=== PATIENT | male | born 1950 | race Caucasian/White ===

== ENCOUNTER 2016-04-15 07:00 | Day surgery (SDC) | payer MEDICARE ==
[~2016-04-15] VITALS: Ht 177.8 cm; Wt 92.0 kg
[~2016-04-15 07:00] MED LIST: ALBU2TAB4 PO; ASPI-973 PO; BUPR150T9 PO; GEMF600T3 PO; HYDR-4003 PO; LISI40TA PO; MELO-259 PO; NAPR500T5 PO; OMEP20TA86 PO; RED600CA2 PO
[2016-04-15 07:33] VITALS: BP 136/79; PULSE 66; RESP 14; O2SAT 96
[2016-04-15] MEDS ORDERED: 0.9% Sodium Chloride 1,000 ML ONE (07:56)
[2016-04-15] MEDS ORDERED: fentaNYL-PF 50 mCg/mL 2 mL Inj ONE (08:03)
[2016-04-15] MEDS ORDERED: Sodium Chloride LOK Flush 10 mL Syringe IV PRN (08:05)
[2016-04-15] MEDS ORDERED: fentaNYL-PF 50 mCg/mL 2 mL Inj IVPUSH PRN (08:05)
[2016-04-15] MEDS: 0.9% Sodium Chloride 1,000 ML IV PRN ×2 (08:09→08:23)
[2016-04-15 08:41] VITALS: BP 127/72; PULSE 64; RESP 16; O2SAT 96
--- NOTE | 2016-04-15 08:53 | ENDO ---
[address] [address] ENDOSCOPY PROCEDURE PATIENT: DOMINGUEZ MCKEON : 1950 MR#: [id number] ADMIT: 04/15/2016 JOB ID: [id number] PRIMARY PROVIDER: Luke Bermudez MD PROCEDURE: Colonoscopy with cold forceps polypectomy. INDICATIONS: A 65-year-old male with a personal history of colon polyps, returning for surveillance. EQUIPMENT: PCEurotri-H180-AL. SEDATION: 3 mg Versed and 75 mcg fentanyl. COMPLICATIONS: None identified. BOWEL PREPARATION: Fair, adequate exam. PROCEDURE INFORMATION: After the risks and benefits were explained, written and verbal informed consent was obtained. Sedation was applied. A digital rectal examination was accomplished. No significant pathology appreciated. The scope was introduced into the rectum and advanced to the cecum as identified by the appendiceal orifice and ileocecal valve. The scope was slowly withdrawn to carefully examine the mucosa for any defects or lesions. Retroflexed views were accomplished in the rectum. The colon was decompressed, the scope removed from the patient who tolerated the procedure well. FINDINGS: There is a diminutive polyp in the proximal transverse removed with cold forceps. This measured approximately 3-4 mm. Retroflexed views from within the rectum were unremarkable. There was no other significant pathology appreciated. ENDOSCOPIC DIAGNOSIS: Diminutive colon polyp. RECOMMENDATIONS: 1. Await histopathology. 2. Repeat colonoscopy in five years.
[2016-04-15 08:59] VITALS: BP 115/71; PULSE 77; RESP 14; O2SAT 98
--- NOTE | 2016-04-16 10:34 | PATH ---
SURGICAL PATHOLOGY Attending Physician:Fred Cunningham CASE STATUS: Signed Out PATIENT NAME: DOMINGUEZ MCKEON PID: [id number] : 1950 DATE COLLECTED:04/15/2016 15:11 SPECIMEN: Colon, Biopsy CLINICAL HISTORY: A: TRANSVERSE COLON POLYP FINAL DIAGNOSIS: 1.TRANSVERSE COLON POLYP: TUBULAR ADENOMA. ICD10 CODE D12.3 GROSS DESCRIPTION: The specimen is received in one formalin filled container labeled with the patient's name, sublabeled "transverse colon polyp" and consists of a 0.2 x 0.2 x 0.1 CM portion of tissue which is entirely submitted in one cassette. 04/15/2016 DAC MICRO DESCRIPTION: See diagnosis. ICD-9 CODES: CPT CODES: 1: 43034 Electronically Signed Out Usha Gallardo MD [facility], [place] [address] Technical component performed at [facility], [address] [place] [address] Ave[address], [place], [address]
== END 2016-04-15 23:59 | disposition home or self-care (01) ==
LOC: END 07:00
PROVIDERS: ATTEND Internal Medicine Gastroenterology
DX: Z12.11 Encounter for screening for malignant neoplasm of colon (principal); Z86.010 Personal history of colon polyps; D12.3 Benign neoplasm of transverse colon; I10 Essential (primary) hypertension; E78.5 Hyperlipidemia, unspecified; F17.210 Nicotine dependence, cigarettes, uncomplicated; Z79.82 Long term (current) use of aspirin
CPT/HCPCS: 45380; 88305; 99153; G0500; J2250; J7030

== ENCOUNTER 2016-08-05 19:02 | Emergency (ER) | payer MEDICARE ==
[~2016-08-05] VITALS: Ht 177.8 cm; Wt 93.2 kg
[~2016-08-05 19:02] MED LIST changes: -ALBU2TAB4 PO; -HYDR-4003 PO
[2016-08-05 19:10] VITALS: BP 102/52; PULSE 61; RESP 18; O2SAT 95
--- NOTE | 2016-08-05 19:20 | ED.REPORT ---
HPI-Syncope Date of Service Aug 05, 2016 ED Provider: Dr. Pierce Garay D.O. A 65 year old male with a history of hypertension, hyperlipidemia, arthritis, and GERD presents to the ED via EMS after a syncopal episode just prior to arrival. The patient went to the store, drank 1.5 beers, and began to feel dizzy. He then lost consciousness and fell to the ground without hitting his head. Bystanders reported witnessing seizure-like activity. When he woke up, the patient became nauseous and vomited. EMS found the patient awake and alert, with a BP of 95/60, a respiration rate of 20, and otherwise normal vital signs. He now reports fatigue and generalized weakness. The patient denies chest pain, SOB, headache, focal weakness, or other symptoms. He has never had similar symptoms in the past. Nursing Notes Stated Complaint: SYNCOPE Chief Complaint: Seizure Nursing Notes Reviewed: Yes Allergies: Coded Allergies: pravastatin (Verified Allergy, Unknown, myalgia, 08/05/16) Scheduled Aspirin (Aspirin) 81 Mg Tablet 81 MG PO DAILY Bupropion HCl (Zyban) 150 Mg Tablet.er 150 MG PO BID Gemfibrozil (Gemfibrozil) 600 Mg Tablet 600 MG PO BID Lisinopril (Lisinopril) 40 Mg Tablet 40 MG PO DAILY Meloxicam (Meloxicam) 7.5 Mg Tablet 7.5 MG PO DAILY Omeprazole (Omeprazole) 20 Mg Tablet.dr 20 MG PO DAILY Red Yeast Rice (Red Yeast Rice) 600 Mg Capsule 600 MG PO DAILY Scheduled PRN Naproxen (Naproxen) 500 Mg Tablet.dr 500 MG PO BID PRN PRN For Pain General Time Seen by Provider: 19:20 Chief Complaint Other (Syncopal Episode) Syncope Description: First episode Hx Obtained From: Patient, EMS Arrived By: Ambulance Onset Occurred: Just prior to arrival Context of Onset: EtOH use Symptom Duration: Since onset Severity: Current: No pain currently Severity: Maximum: No pain Associated with: Reports: Dizziness, Denies: Chest pain, Shortness of breath Pertinent Negative: Relieved by nothing Immunizations: Unknown Recent Healthcare: No recent doctor visit Similar Sx Previous: No Past Medical History Past Medical History Hypertension Hyperlipidemia GERD Back Injury Osteoarthritis (thumbs) Past Surgical History Left shoulder rotator cuff repair Smoking History Current Every Day Smoker Ambulatory Status Independent Review of Systems Constitutional: Reports: Fatigue, Weakness - generalized Respiratory: Denies: Non-productive cough, Shortness of breath Cardiovascular: Denies: Chest pain GI: Reports: Nausea, Vomiting Neurologic: Reports: Change LOC, Dizziness, Syncope, Denies: Focal weakness, Headache Complete sys rev & neg: except as marked. Physical Exam Initial Vital Signs Vital Signs (First) Date Time Temp Pulse Resp B/P Pulse Ox O2 Delivery O2 Flow Rate FiO2 08/05/16 19:10 36.8 61 18 102/52 95 Room Air Initial VS: Reviewed Head / Eyes: Atraumatic, Normocephalic Abdomen / GI: Soft, Non-tender Skin: Warm, Dry, No cyanosis Psychiatric: Mood/affect normal, Behavior normal, Normal thought content General/Constitutional: Awake, Alert BP of 103/45 Respiratory / Chest: Breath sounds NL, Breath sounds = bilat, No respiratory distress Cardiovascular: Heart rate NL, Regular rhythm, Heart sounds NL Neurologic: Oriented X3, Speech NL, No motor deficits, No sensory deficits, CN II - XII intact, Cerebellar NL ENT: Airway patent, Mucous membranes moist Interpretation & Diagnostics Lab Results Interpretation Result Diagram: 08/05/16191408/05/161914 Test 08/05/16 19:15 08/05/16 19:16 08/05/16 20:02 08/05/16 22:49 White Blood Count 10.8th/mm3 (3.8-10.1) Red Blood Count 4.50mil/mm3 (4.40-5.80) Hemoglobin 14.1g/dL (13.8-17.2) Hematocrit 40.7% (41.0-50.0) Mean Corpuscular Volume 90.4fL (81-100) Mean Corpuscular Hemoglobin 31.3pg (27.0-35.0) Mean Corpuscular Hemoglobin Concent 34.6% (32.0-37.0) Red Cell Distribution Width 12.9% (12.3-15.4) Platelet Count 282bil/L (150-400) Neutrophils (%) (Auto) 48.7% (40-74) Lymphocytes (%) (Auto) 38.6% (14-46) Monocytes (%) (Auto) 9.3% (4-12) Eosinophils (%) (Auto) 2.7% (0-5) Basophils (%) (Auto) 0.5% (0-3) D-Dimer 6.87mg/L FEU (<0.50) Hold Blue Top Tube Received (Received) Sodium Level 139mEq/L (134-144) Potassium Level 3.7mEq/L (3.5-5.2) Chloride Level 99mEq/L (97-108) Carbon Dioxide Level 20mmol/L (18-29) Blood Urea Nitrogen 27mg/dL (8-27) Creatinine 1.66mg/dL (0.76-1.27) Estimat Glomerular Filtration Rate 44mL/min (>59) Glucose Level 118mg/dL (60-99) Calcium Level 9.9mg/dL (8.5-10.1) Total Bilirubin 0.3mg/dL (0.0-1.2) Aspartate Amino Transf (AST/SGOT) 17U/L (0-50) Alanine Aminotransferase (ALT/SGPT) 12U/L (0-44) Alkaline Phosphatase 73U/L (25-160) Pro-B-Type Natriuretic Peptide 16.68pg/mL (0-376) Total Protein 7.2g/dL (6.4-8.4) Albumin 4.7g/dL (3.4-5.0) Hold Graff Top Tube Received (Received) Hold Purple Top Tube Received (Received) Hold Urine Received (Received) Troponin T 0.010ug/L (0.0-0.011) ECG Interpretation ECG Interpretation: Sinus rhythm rate 59 Time: 19:29 Interpreted by: ED physician CT Head Interpretation IMPRESSION: No acute intracranial abnormalities. Dictated by: Maximiliano Taylor M.D. on 08/05/2016 at 20:01 Study: Head CT no contrast Interpretation / Wet Read by: Interpret - Radiologist CT Chest Interpretation IMPRESSION: No evidence for central pulmonary embolism. No acute pulmonary disease. Dictated by: Maximiliano Taylor M.D. on 08/05/2016 at 21:10 Study type: CT pulm angiogram Interpretation / Wet Read by: Interpret - Radiologist Re-Eval/Medical Decision Med Decision/Clinical Course Basically this is a pleasant 65-year-old male who was at a store drinking a beer when he felt lightheaded and suffered a syncopal episode. He had some strange motor activity while he was out. He did not lose control of bladder and he did not bite his tongue. Does not sound specifically that he had a seizure. He was not postictal. On my evaluation is completely complaint free. Of note he denies having headache, neck pain neck stiffness, chest pain, shortness breath, abdominal pain, nausea however he did vomit once. No abdominal pain. His exam was normal. He was however relatively hypotensive. He admits to not drinking much water but he did have some beer. EKG did not show any evidence of ischemia or conduction abnormality. CT brain was normal. I did this to rule out a mass or traumatic brain injury related to the syncope. Nothing about this seemed to be strokelike. D-dimer was elevated. He was low risk for pulmonary emboli clinically however he needed a CT scan which was negative. Serial troponins are normal. I talked about hospital observation for his syncopal episode. He refused. He wanted to go home. That is why we did serial troponins gave him fluids. His troponins remain normal. He was normotensive and felt great. He will be discharged home. I recommend close outpatient follow-up. I will contact him tomorrow. Source of Hx: Old records Re-Evaluation/Progress #1: Time of Eval: 22:30 Patient Status: Condition improved Re-Evaluation/Progress Note: Discussed with patient lab and CT results with plan for repeat labs. Patient requests to be discharged but agrees with plan for care and all questions were addressed. Re-Evaluation/Progress #2: Time of Eval: 23:43 Patient Status: Condition improved Re-Evaluation/Progress Note: Discussed with patient repeat lab results, diagnosis, and plan for discharge. Follow-up and return to the ER instructions given. Patient agrees with plan for care and all questions were addressed. Counseled Regarding: Diagnosis, Lab results, Need for follow-up, When/why to return to ED Discharge & Departure Impression: Primary Impression: Syncope Syncope type: unspecified Qualified Code: R55 - Syncope and collapse Disposition: Home Discharge Condition All VS Reviewed: Yes Condition: Improved Patient Instructions: Dehydration (ED), Syncope (ED) Additional Instructions: Thank you for entrusting us with your care. Your exam today was reassuring. Your CT and heart enzymes were normal. I suspect you were dehydrated. Drink plenty of fluids. Call your primary care provider tomorrow for a follow-up appointment. Return to the ER with any new or worsening symptoms including chest pain and shortness of breath. Referrals: Luke Bermudez MD (PCP) Scribe Attestation Portions of this note were transcribed by Charlotte Spivey. I, Dr. Garay, personally performed the history, physical exam, and medical decision-making; I reviewed and confirmed the accuracy of the information in the transcribed note. Signed by: Hossein Iqbal, 08/06/2016, 00:20 copies to: Luke Bermudez MD, Todd P DO Aug 05, 2016 19:20 CHARLOTTE SPIVEY Aug 05, 2016 19:30
[2016-08-05] MEDS ORDERED: 0.9% Sodium Chloride 1,000 ML IV SCH (19:35)
[2016-08-05 20:07] LABS: BASOPHILS % (AUTO) 0.5 % (0-3); EOSINOPHILS % (AUTO) 2.7 % (0-5); MONOCYTES % (AUTO) 9.3 % (4-12); Mean Corpuscular Hemoglobin 31.3 pg (27.0-35.0); Mean Corpuscular Volume 90.4 fL (81-100); NEUTROPHILS % (AUTO) 48.7 % (40-74); Platelet Count 282 bil/L (150-400)
--- NOTE | 2016-08-05 20:10 | DRSVH ---
PROCEDURE: CT BRAIN WITHOUT CONTRAST ([id number]) INDICATIONS: 65-year-old male with seizures, syncope, vomiting. TECHNIQUE: Noncontrast 4.5 mm thick angled axial sections acquired from the foramen magnum to the vertex, with c oronal reformats. COMPARISON: [facility], CT, BRAIN W/O CONTRAST, 06/19/2014, 14:34. FINDINGS: Image quality: Excellent. CSF spaces: Basal cisterns are patent. No extra-axial fluid collections. Ventricles are normal in size and shape. Brain: No midline shift. No intracranial masses or hemorrhage. Fall-white matter interface is norm al. Skull and face: Calvarium and visualized facial bones are intact, without suspicious lesions. Sinuses: Visualized sinuses and mastoids are clear. IMPRESSION: No acute intracranial abnormalities. Dictated by: Maximiliano Taylor M.D. on 08/05/2016 at 20:01 Approved by: Maximiliano Taylor M.D. on 08/05/2016 at 20:03
[2016-08-05 20:19] LABS: TROPONIN T < 0.010 ug/L (0.0-0.011)
[2016-08-05] MEDS ORDERED: 0.9% Sodium Chloride 1,000 ML IV ONE ×2 (20:35→21:30)
[2016-08-05 21:16] VITALS: BP 112/50; PULSE 60; RESP 13; O2SAT 100
--- NOTE | 2016-08-05 21:21 | DRSVH ---
PROCEDURE: CT ANGIO CHEST PULMONARY EMBOLISM ([id number]) INDICATIONS: 65 year-old male with syncope and elevated d-dimer level. TECHNIQUE: After the administration of intravenous contrast, 2 mm thick sections acquired from the pulmonary api josie to the posterior costophrenic angles. 3-dimensional maximum intensity projection (MIP) coronal a nd sagittal reformats were then acquired through the thorax. For radiation dose reduction, the follo wing was used: automated exposure control, adjustment of mA and/or kV according to patient size. COMPARISON: None. FINDINGS: Image quality: Excellent. Pulmonary arteries: Pulmonary arteries are normal in size, and demonstrate no intraluminal filling d efects to suggest central pulmonary embolism. Lungs and pleura: Lungs are clear. No pleural effusions or pneumothorax. Central and peripheral ai rways are patent. Mediastinum: Heart size is normal, without pericardial effusion. No mediastinal or hilar adenopathy . Thoracic aorta is normal in caliber and enhancement. Esophagus is normal in caliber, without hiat al hernia. Bones and chest wall: No suspicious bony lesions. Ribs and thoracic spine appear intact throughout. There is thoracic spine diffuse idiopathic skeletal hyperostosis. Thyroid gland is normal in size. No axillary or supraclavicular adenopathy. Abdomen: Visualized upper abdominal solid organs appear normal in the early arterial phase of enhanc ement. IMPRESSION: No evidence for central pulmonary embolism. No acute pulmonary disease. Dictated by: Maximiliano Taylor M.D. on 08/05/2016 at 21:10 Approved by: Maximiliano Taylor M.D. on 08/05/2016 at 21:14
[2016-08-05 23:59] VITALS: PULSE 62; RESP 16; O2SAT 99
== END 2016-08-06 | disposition home or self-care (01) ==
LOC: SED 19:02
DX: R55 Syncope and collapse (principal); I10 Essential (primary) hypertension; E78.5 Hyperlipidemia, unspecified; K21.9 Gastro-esophageal reflux disease without esophagitis; F17.200 Nicotine dependence, unspecified, uncomplicated; Z79.82 Long term (current) use of aspirin; Z79.899 Other long term (current) drug therapy; Z88.8 Allergy status to other drugs, medicaments and biological substances
CPT/HCPCS: 36415; 70450; 71275; 80053; 81002; 82948; 83880; 84484; 85025; 85378; 93005; 96360; 99285; J7030; Q9967